=== PATIENT | female | born 1950 | race Caucasian/White ===

== ENCOUNTER 2020-04-07 10:20 | Emergency (ER) | payer MEDICARE, SELFPAY ==
[2020-04-07] VITALS (7 sets, daily range): BP systolic 128–154; BP diastolic 65–85; PULSE 91–106; RESP 18–24; TEMP 37; O2SAT 98–100
--- NOTE | ~2020-04-07 | CT_ITS ---
EXAMINATION: CT brain wo con EXAM DATE: 04/07/2020 11:06 INDICATION: Syncope. Recent surgery on brain tumor. TECHNIQUE: Spiral CT of the head was performed without contrast. Axial, coronal and sagittal images were reviewed. The dose-length product (DLP) for this examination was 605.33 mGy-cm. The exposure w as tailored according to patient size, and iterative reconstruction (ASIR) was used as additional dos e reduction technique. There is no prior study for comparison. FINDINGS: There is no acute intraparenchymal hemorrhage. No evidence of intraparenchymal brain mass lesion. No evidence of acute infarction. Please note that initial head CT has limited sensitivity f or small or acute infarctions. Patient has had left-sided occipital craniotomy. Some underlying enla rged CSF space or arachnoid cyst. There is another port-like metallic device in the calvarium overlyi ng the left parietal region. This is causing some metallic artifact. There is mild periventricular an d subcortical hypodensity, nonspecific but probably related to small vessel ischemic disease. There is mild ventricular prominence out of proportion to sulci which is suspected most likely central atr ophy rather than hydrocephalus. There is intracranial carotid arteriosclerosis. There are no extra -axial collections. There is no mass effect or midline shift. The orbits are unremarkable. Soft ti ssue is unremarkable. Status post left mastoidectomy. Right mastoid air cells, and ethmoid imaged si nuses are well aerated. IMPRESSION: Chronic and surgical changes. Reviewed, dictated and finalized at location B. IAC CATH LAB MANAGER
--- NOTE | ~2020-04-07 | XR_ITS ---
EXAMINATION: XR chest 1V EXAM DATE: 04/07/2020 11:11 INDICATION: Syncope. TECHNIQUE: Portable AP frontal chest x-ray was obtained. There is no prior study for comparison. FINDINGS: The lungs are clear. There are no pleural effusions. The cardiomediastinal silhouette is within normal limits. There is no pneumothorax suspected. Right shoulder rotator cuff repair anchor s. IMPRESSION: No acute cardiopulmonary findings. Reviewed, dictated and finalized at location B. ICIAN/OPHTHALMOLOGIST
--- NOTE | 2020-04-07 10:25 | ECG_ITS ---
Measurements Intervals [place] Rate: 99 P: 76 KS: 151 QRS: -6 QRSD: 74 T: 12 QT: 314 QTc: 404 Interpretive Statements SINUS RHYTHM LOW QRS VOLTAGE IN PRECORDIAL LEADS VOLTAGE CRITERIA FOR LVH INFERIOR INFARCT, AGE INDETERMINATE BASELINE ARTIFACT- V3-V4 ABNORMAL ECG Electronically Signed On 04-07-2020 10:46:44 SHAREPOINT CONSULTANT by Dimas Boykin D.O.
[2020-04-07 10:51] LABS: Basophils Percent Auto 0.3 % (0.2-1.2); Eosinophils Absolute Auto 0.3 K/mm3 (0-0.3); Eosinophils Percent Auto 5.5 % (0-4.4); Hematocrit 37.7 % (37.0-47.0); Hemoglobin 12.3 g/dL (12.0-15.0); Immature Granulocyte Absolute 0.03 K/mm3 (0.00-0.031); Immature Granulocyte Percent A 0.5 % (0-0.5); Immature Platelet Fraction Pct 2.2 % (0.9-11.2); Lymphocytes Absolute Auto 1.14 K/mm3 (0.9-3.2); Lymphocytes Percent Auto 19.5 % (18.3-44.2); Mean Corpuscular HGB Conc 32.6 g/dl (32-36); Mean Corpuscular Hemoglobin 28.1 pg (26-34); Mean Corpuscular Volume 86.3 fl (80-100); Mean Platelet Volume 9.4 fl (7.4-10.4); Monocytes Absolute Auto 0.6 K/mm3 (0.1-0.6); Monocytes Percent Auto 9.7 % (2.6-8.5); Neutrophils Absolute Auto 3.8 K/mm3 (1.3-6.7); Neutrophils Percent Auto 64.5 % (45.5-73.1); Platelet Count Result 129 k/mm3 (150-375); Red Blood Count 4.37 M/mm3 (4.2-5.4); Red Cell Distribution Width 14.4 % (11.5-14.5); White Blood Count 5.9 K/mm3 (4.5-10.0)
[2020-04-07 10:54] LABS: Anion Gap 7 mmol/L (8-16); Blood Urea Nitrogen 14 mg/dL (7-17); Calcium 9.2 mg/dL (8.4-10.2); Carbon Dioxide 26 mmol/L (22-30); Chloride 101 mmol/L (98-107); Estimated CRCL calculation 84 ml/min; Estimated Glomerular Filt Rate > 60; Glucose 189 mg/dL (65-105); Potassium 4.4 mmol/L (3.4-5.0); Sodium 134 mmol/L (137-145)
--- NOTE | 2020-04-07 10:57 | ED.GENADULT ---
HPI - General Adult General Chief complaint: Syncope Stated complaint: syncopal episode, recent brain surgery Time Seen by Provider: 04/07/20 10:25 Source: RN notes reviewed History of Present Illness HPI narrative: Patient presents to emergency department from home for syncopal episode. Patient states she had a syncopal episode last night. States she been laying on her bed and gotten up to go into the living room when she had a syncopal episode. She was caught by her did not fall to the ground. Patient is scheduled for eye surgery tomorrow and I called her eye physician today who would recommend she come to the emergency department for further evaluation. Patient denies any fevers or chills vision changes chest pain shortness of breath abdominal pain nausea vomiting or any other symptoms. 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 a IVC filter placed and is off anticoagulation secondary to the recent craniotomy Related Data Home Medications Medication Instructions Recorded Confirmed omeprazole 20 mg capsule,delayed 20 mg PO DAILY 09/12/19 release Allergies Allergy/AdvReac Type Severity Reaction Status Date / Time latex Allergy Mild RASH AT Verified 01/01/20 11:34 SITE OF TAPE epinephrine Allergy Unknown shakey Verified 01/01/20 11:34 Sulfa (Sulfonamide Allergy Unknown Joint Pain Verified 01/01/20 11:34 Antibiotics) tetracycline Allergy Unknown Joint Pain Verified 01/01/20 11:34 Review of Systems Review of Systems: Narrative: Gen.: Denies fevers or chills Eyes: Denies eye pain or visual change ENT: Denies congestion Respiratory: Denies shortness of breath or cough CV: See HPI GI: Denies abdominal pain nausea, emesis or diarrhea Musculoskeletal: Denies back pain or muscle pain Neuro: Denies numbness, tingling, weakness or focal weakness Skin: Denies rash Except as documented, all other systems reviewed and negative [facility] Past Medical History Medical History (Updated 04/07/20 @ 15:04 by Billy Gore DO) Gastroesophageal reflux Mixed hyperlipidemia Obstructive sleep apnea Rosacea Seasonal allergic rhinitis Surgical History Surgical History Status post excision of acoustic neuroma Family History Family History Other Cerebrovascular accident Family history of lung cancer Social History Social History Smoking status: Heavy tobacco smoker Second hand tobacco smoke exposure: No Alcohol intake: never Gender identity (if verbalized by the patient): Female Exam Narrative: Exam Narrative: APPEARANCE: No acute distress, nontoxic, resting in bed EYES: PERRL HEENT: Normocephalic, atraumatic, OMM RESPIRATORY: No respiratory distress Clear to auscultation bilaterally with no rhonchi wheezing or rales. CARDIOVASCULAR: Regular rate and rhythm without murmurs rubs or gallops. ABDOMINAL: Soft, nontender, nondistended, no rebound or guarding MUSCULOSKELETAl: Moves all extremities. No clubbing, cyanosis or edema. NEURO: Awake and alert. Following commands, speech normal, no focal deficits SKIN:: Warm, dry. No rashes lesions or abrasions PSYCHIATRIC: Normal affect/mood, Course Course Emergency Course: Patient is remained on cardiac monitoring throughout stay in ED. No arrhythmias noted Discussed with patient results of workup and diagnosis. Discussed need for follow-up with primary care, proper use of medication, and reasons to return to the emergency department. Patient understands and agrees to current treatment plan Vital Signs Vital signs: Vital Signs Temperature 98.6 F 04/07/20 10:36 Pulse Rate 106 H 04/07/20 10:36 Respiratory Rate 24 H 04/07/20 10:36 Blood Pressure 154/85 H 04/07/20 10:36 Pulse Oximetry 99 04/07/20
[2020-04-07] MEDS: SODIUM CHLORIDE 0.9% IV 1,000 ML 999 ML IV CONT (11:13)
[2020-04-07 11:21] LABS: INR 0.9
[2020-04-07 11:22] LABS: Partial Thromboplastin Time 23.9 SECONDS (22.3-36.8)
[2020-04-07 11:25] LABS: Troponin I < 0.012 ng/mL (0.000-0.034)
[2020-04-07 14:06] LABS: Troponin I < 0.012 ng/mL (0.000-0.034)
== END 2020-04-07 15:13 | disposition home or self-care (01) ==
PROVIDERS: Emergency Provider Emergency Medicine; PCP Family Medicine
DX: R55 Syncope and collapse (principal); K21.9 Gastro-esophageal reflux disease without esophagitis; E78.2 Mixed hyperlipidemia; G47.33 Obstructive sleep apnea (adult) (pediatric); R94.31 Abnormal electrocardiogram [ECG] [EKG]; Z86.711 Personal history of pulmonary embolism; F17.200 Nicotine dependence, unspecified, uncomplicated; Z87.01 Personal history of pneumonia (recurrent)
CPT/HCPCS: 36415; 70450; 71045; 80048; 84484; 85025; 85055; 85610; 85730; 93005; 96360; 99284; J7030

== ENCOUNTER 2021-05-24 15:19 | Outpatient (CLI) | payer MEDICARE, SELFPAY ==
--- NOTE | ~2021-05-24 | US_ITS ---
EXAMINATION:US venous doppler LE LT INDICATION:Left foot pain TECHNIQUE: Multiple grayscale, color flow and Doppler images of the left lower extremity deep venous systems were obtained and reviewed. COMPARISON:No prior studies for comparison. FINDINGS: The common femoral, superficial femoral and popliteal veins demonstrate normal respiratory variation, augmentation and compressibility. Color flow is also seen within the posterior tibial, pe roneal, greater saphenous and profunda veins. IMPRESSION: 1: No lower extremity deep venous thrombosis. Reviewed, dictated and finalized at location A. IM WITNESS ADMINISTRATOR
== END 2021-05-24 15:20 | disposition home or self-care (01) ==
LOC: ANHIMG 15:29
PROVIDERS: PCP Family Medicine
DX: M79.672 Pain in left foot (principal)
CPT/HCPCS: 93971

== ENCOUNTER → 2021-05-26 15:00 | Outpatient (CLI) | payer MEDICARE, SELFPAY ==
--- NOTE | ~2021-05-26 | MM_ITS ---
EXAMINATION: MM screening [facility] BI w tito HISTORY: Screening mammogram TECHNIQUE: Craniocaudal and mediolateral oblique 3-D tomosynthesis images were obtained and synthetic 2-D images were generated. CAD analysis was submitted and interpreted. COMPARISON: 05/13/2019, 05/24/2017, 09/14/2012 BREAST PARENCHYMAL COMPOSITION: There are scattered areas of fibroglandular density. FINDINGS: There is no evidence of suspicious mass, calcification, or architectural distortion to sugg est malignancy in either breast. There has been no suspicious interval change. IMPRESSION: 1. No mammographic evidence of malignancy. 2. Recommend routine screening mammography in one year. BI-RADS Category 1: Negative Reviewed, dictated and finalized at location A. CTOR OF RESPIRATORY THERAPY
== END ==
PROVIDERS: PCP Family Medicine; Visit Provider Family Medicine
DX: Z12.31 Encounter for screening mammogram for malignant neoplasm of breast (principal)
CPT/HCPCS: 77063; 77067

== ENCOUNTER 2022-07-20 17:00 | Emergency (ER) | payer MEDICARE, SELFPAY ==
--- NOTE | ~2022-07-20 | XR_ITS ---
EXAMINATION: XR chest 2V 07/20/2022 18:10 INDICATION: Shortness of breath with productive cough PROCEDURE: 2 view chest COMPARISON: 04/07/2020 FINDINGS: The lungs are clear. The cardiomediastinal silhouette is within normal limits. There are no pleural effusions. There is no pneumothorax suspected. There is accentuated thoracic kyphosis. IMPRESSION: 1: NO ACUTE CARDIOPULMONARY DISEASE. Reviewed, dictated and finalized at location A. ET MAKER
[2022-07-20 17:30] VITALS: BP 156/89; PULSE 96; RESP 16; TEMP 37.2; O2SAT 99
--- NOTE | 2022-07-20 17:48 | ED.URI ---
HPI - URI/Sore Throat General Chief Complaint: Upper Respiratory Infection Stated Complaint: cold sx Time Seen by Provider: 07/20/22 17:48 Source: patient Mode of arrival: ambulatory Limitations: no limitations History of Present Illness HPI Narrative: 71-year-old female presents with complaint of nasal congestion, sore throat, cough, fatigue for 5-6 days. Reports that she started to feel better and then today cough worse with shortness of breath. Afebrile. Not taking any [id number] medications today to treat her symptoms. Patient had COVID 3 weeks ago. All Systems reviewed and negative except as noted above. Related Data Home Medications Medication Instructions Recorded Confirmed omeprazole 20 mg capsule,delayed 20 mg PO DAILY 09/12/19 07/20/22 release aspirin 325 mg tablet 325 mg PO DAILY 07/20/22 07/20/22 metformin 500 mg tablet,extended 500 mg PO DAILY 07/20/22 07/20/22 release 24 hr Allergies Allergy/AdvReac Type Severity Reaction Status Date / Time latex Allergy Mild RASH AT Verified 07/20/22 17:34 SITE OF TAPE Sulfa (Sulfonamide Allergy Unknown Joint Pain Verified 07/20/22 17:34 Antibiotics) tetracycline Allergy Unknown Joint Pain Verified 07/20/22 17:34 Review of Systems Review of Systems: CONSTITUTIONAL: Denies fever, chills, or sweats. EYES: Denies visual changes, redness, or discharge. ENT: reports rhinorrhea, congestion, sore throat. Denies otalgia. CARDIOVASCULAR: Denies chest pain, palpitations, or edema. RESPIRATORY: reports cough anddyspnea with exertion. GASTROINTESTINAL: Denies abdominal pain, nausea, vomiting, or diarrhea. GENITOURINARY: Denies dysuria or hematuria. SKIN: Denies rash or itching. MUSCULOSKELETAL: Denies back pain, joint pain, or myalgia. NEUROLOGIC: Denies headache, numbness, or weakness. PSYCHIATRIC: Denies anxiety or depression. All other systems reviewed are negative, except as documented in HPI. [facility] Past Medical History Medical History Cadena's palsy Gastroesophageal reflux IVC (inferior vena cava obstruction) Mixed hyperlipidemia Normal colonoscopy (~2019) Obstructive sleep apnea Rosacea Seasonal allergic rhinitis Surgical History Surgical History H/O craniotomy H/O eye surgery Status post excision of acoustic neuroma Family History Family History (Updated 10/26/20 @ 10:12 by Veronica Glover [facility]) Mother Acute leukemia Cerebrovascular accident Hypertension Sibling Lymphoma Father Lung cancer Polio Other Family history of lung cancer Social History Social History (Updated 10/26/20 @ 10:13 by Veronica Glover [facility]) Smoking packs per day: 2 Smoking cigarettes per day: 40.0 Years smoked: 10 Smoking pack-years: 20.00 Tobacco type: cigarettes Second hand tobacco smoke exposure: No Smoking end date: 06/04/81 Alcohol intake: current Alcohol use details: rare Substance use: never Substance use type: does not use Living arrangements: with family Occupation/Education: retired Gender identity (if verbalized by the patient): Female Spiritual care concerns: No Agree to blood products: Yes Comments At time of signature, agree with nursing past medical, surgical, social and family history. There is no relevant family history pertinent to the presenting complaint. Exam Narrative: GENERAL: This is a well-nourished, well-developed patient, in no apparent distress. HEAD: normocephalic, atraumatic. EYES: PERRL. Sclera clear/white. Vision is grossly intact. EARS: External ears normal, auditory canals clear and without drainage, TMs normal without perforation. Hearing grossly intact. NOSE: External nose normal with clear nasal drainage. THROAT: Mucous membranes moist, Mild erythema postnasal drainage. NECK: Neck supple, non-tender without lymphadenopat
== END 2022-07-20 18:33 | disposition home or self-care (01) ==
PROVIDERS: Emergency Provider Nurse Practitioner Family; PCP Family Medicine
DX: J06.9 Acute upper respiratory infection, unspecified (principal); R05.9 Cough, unspecified; Z87.891 Personal history of nicotine dependence; K21.9 Gastro-esophageal reflux disease without esophagitis; E78.2 Mixed hyperlipidemia; Z79.82 Long term (current) use of aspirin
CPT/HCPCS: 71046; 99213; G0463

== ENCOUNTER 2024-01-15 01:32 | Day surgery (SDC) | payer MEDICARE, SELFPAY ==
[2023-12-26 14:44] VITALS: BMI 34.9
[2023-12-26 15:17] VITALS: BMI 34.9
[2023-12-26 15:18] VITALS: BMI 34.9
[2024-01-15 06:45] VITALS: BP 151/70; PULSE 88; RESP 20; TEMP 36.1; O2SAT 100; BMI 33.6
--- NOTE | 2024-01-15 07:11 | WPDANESEPPF ---
Anes - Initial Pre Proc Eval Procedure: Operation Date: 01/15/24 08:00 Proposed Procedures p Esophagogastroduodenoscopy & Colonoscopy - Edwin Keane MD Date/Time: 01/15/24 07:11 Surgeon: Edwin Keane MD Pre Op Diagnosis: Family history colon polyps, GERD without esophagi Patient Data Age: 73 Gender: F Height: 1.73 m Weight: 100.3 kg Last Vital Signs Temp 36.1 C L 01/15/24 06:45 Pulse 88 01/15/24 06:45 Resp 20 01/15/24 06:45 BP 151/70 H 01/15/24 06:45 Pulse Ox 100 01/15/24 06:45 O2 Del Method Room Air 01/15/24 06:45 Allergies Allergy/AdvReac Type Severity Reaction Status Date / Time Sulfa (Sulfonamide Allergy Unknown Joint Pain Verified 01/15/24 06:57 Antibiotics) tetracycline Allergy Unknown Joint Pain Verified 01/15/24 06:57 Home Medications Medication Instructions Recorded Confirmed Type omeprazole 20 mg capsule,delayed 20 mg PO DAILY 09/12/19 01/15/24 History release spironolactone 25 mg tablet See Rx Instructions .Route 09/18/21 01/15/24 Rx .COMPLEX #90 tabs aspirin 325 mg tablet 325 mg PO DAILY 07/20/22 01/15/24 History metformin 500 mg tablet,extended 1,000 mg PO DAILY 07/20/22 01/15/24 History release 24 hr carboxymethylcellulose sodium 0.5 1 drp LEFT EYE QID PRN Dry Eyes 12/26/23 01/15/24 History % eye drops in a dropperette (Refresh Plus) cetirizine 10 mg capsule (Zyrtec) 10 mg PO DAILY 12/26/23 01/15/24 History rosuvastatin 20 mg BYMOUTH DAILY 12/26/23 01/15/24 History Patient hx anesthesia problems: none Family hx anesthesia problems: none Results Review: All pre-operative results and documents have been reviewed as part of the pre-operative evaluation. [facility] Past Medical History Medical History (Updated 01/15/24 @ 07:12 by Maria Victoria Torres, VICENTE) Cadena's palsy Brain tumor Gastroesophageal reflux IVC (inferior vena cava obstruction) Mixed hyperlipidemia Normal colonoscopy (~2018) Obstructive sleep apnea Rosacea Seasonal allergic rhinitis Surgical History Surgical History H/O craniotomy H/O eye surgery Status post excision of acoustic neuroma Family History Family History (Updated 10/26/20 @ 10:12 by Veronica Glover [facility]) Mother Acute leukemia Cerebrovascular accident Hypertension Sibling Lymphoma Father Lung cancer Polio Other Family history of lung cancer Social History Social History (Updated 10/26/20 @ 10:13 by Veronica Glover [facility]) Smoking packs per day: 2 Smoking cigarettes per day: 40.0 Years smoked: 10 Smoking pack-years: 20.00 Tobacco type: cigarettes Second hand tobacco smoke exposure: No Smoking end date: 06/04/81 Alcohol intake: current Alcohol use details: rare Substance use: never Substance use type: does not use Living arrangements: with family Occupation/Education: retired Gender identity (if verbalized by the patient): Female Spiritual care concerns: No Agree to blood products: Yes Anes - Eval Final PreProcedure Day of Procedure 01/15/24 07:11 Results Review: All pre-operative results and documents have been reviewed as part of the pre-operative evaluation. Informed Consent: The patient's anesthetic plan and its attendant risks and benefits were discussed with the patient/family/POA. Questions were solicited and answers provided to the satisfaction of the patient/family/POA.
[2024-01-15] MEDS: LACTATED RINGERS 1,000 ML 150 ML IV CONT (07:15)
[2024-01-15 07:16] LABS: Glucose Point of Care 144 mg/dl (65-105)
--- NOTE | 2024-01-15 07:21 | WPDANESEPPF ---
Anes - Initial Pre Proc Eval Procedure: Operation Date: 01/15/24 08:00 Proposed Procedures p Esophagogastroduodenoscopy & Colonoscopy - Edwin Keane MD Date/Time: 01/15/24 07:21 Surgeon: Edwin Keane MD Pre Op Diagnosis: Family history colon polyps, GERD without esophagi Patient Data Age: 73 Gender: F Height: 1.73 m Weight: 100.3 kg Last Vital Signs Temp 36.1 C L 01/15/24 06:45 Pulse 88 01/15/24 06:45 Resp 20 01/15/24 06:45 BP 151/70 H 01/15/24 06:45 Pulse Ox 100 01/15/24 06:45 O2 Del Method Room Air 01/15/24 06:45 Allergies Allergy/AdvReac Type Severity Reaction Status Date / Time Sulfa (Sulfonamide Allergy Unknown Joint Pain Verified 01/15/24 06:57 Antibiotics) tetracycline Allergy Unknown Joint Pain Verified 01/15/24 06:57 Home Medications Medication Instructions Recorded Confirmed Type omeprazole 20 mg capsule,delayed 20 mg PO DAILY 09/12/19 01/15/24 History release spironolactone 25 mg tablet See Rx Instructions .Route 09/18/21 01/15/24 Rx .COMPLEX #90 tabs aspirin 325 mg tablet 325 mg PO DAILY 07/20/22 01/15/24 History metformin 500 mg tablet,extended 1,000 mg PO DAILY 07/20/22 01/15/24 History release 24 hr carboxymethylcellulose sodium 0.5 1 drp LEFT EYE QID PRN Dry Eyes 12/26/23 01/15/24 History % eye drops in a dropperette (Refresh Plus) cetirizine 10 mg capsule (Zyrtec) 10 mg PO DAILY 12/26/23 01/15/24 History rosuvastatin 20 mg BYMOUTH DAILY 12/26/23 01/15/24 History Laboratory Tests 01/15/24 07:13 POC Capillary Glucose 144 H mg/dl (65-105) Patient hx anesthesia problems: none Family hx anesthesia problems: none Results Review: All pre-operative results and documents have been reviewed as part of the pre-operative evaluation. [facility] Past Medical History Medical History (Updated 01/15/24 @ 07:12 by Maria Victoria Torres CRNA) Cadena's palsy Brain tumor Gastroesophageal reflux IVC (inferior vena cava obstruction) Mixed hyperlipidemia Normal colonoscopy (~2019) Obstructive sleep apnea Rosacea Seasonal allergic rhinitis Surgical History Surgical History H/O craniotomy H/O eye surgery Status post excision of acoustic neuroma Family History Family History (Updated 10/26/20 @ 10:12 by Veronica Glover [facility]) Mother Acute leukemia Cerebrovascular accident Hypertension Sibling Lymphoma Father Lung cancer Polio Other Family history of lung cancer Social History Social History (Updated 10/26/20 @ 10:13 by Veronica lGover [facility]) Smoking packs per day: 2 Smoking cigarettes per day: 40.0 Years smoked: 10 Smoking pack-years: 20.00 Tobacco type: cigarettes Second hand tobacco smoke exposure: No Smoking end date: 06/04/81 Alcohol intake: current Alcohol use details: rare Substance use: never Substance use type: does not use Living arrangements: with family Occupation/Education: retired Gender identity (if verbalized by the patient): Female Spiritual care concerns: No Agree to blood products: Yes Anes - Eval Final PreProcedure Day of Procedure 01/15/24 07:21 Patient weight: normal Heart: regular rate and rhythm Lungs: clear to auscultation Airway: Mallampati scale class III Neurological: alert and oriented Last oral intake: >/= 8 hours ASA classification: III Emergent: no Anesthetic plan: proceed Anesthesia type and monitoring: general and standard monitoring Results Review: All pre-operative results and documents have been reviewed as part of the pre-operative evaluation. Informed Consent: The patient's anesthetic plan and its attendant risks and benefits were discussed with the patient/family/POA. Questions were solicited and answers provided to the satisfaction of the patient/family/POA.
--- NOTE | 2024-01-15 08:06 | PM.HPGS ---
History of Present Illness History of Present Illness Consent: Risks, benefits, and alternatives have been discussed and questions answered. Patient agrees to proceed with procedure. Chief complaint: Family history colon polyps, GERD without esophagi Narrative: Svetlana Sun is a 73 year old female with colon polyp, last colonoscopy 5 years ago, also intermittent cough since she had craniotomy, using prilosec Review of Systems Review of Systems: All systems reviewed & are unremarkable except as noted in HPI and below PMFSH Past Medical History Medical History (Updated 01/15/24 @ 08:07 by Edwin Keane MD) Cadena's palsy Brain tumor Colon polyp Gastroesophageal reflux IVC (inferior vena cava obstruction) Mixed hyperlipidemia Normal colonoscopy (~2019) Obstructive sleep apnea Rosacea Seasonal allergic rhinitis Surgical History Surgical History H/O craniotomy H/O eye surgery Status post excision of acoustic neuroma Family History Family History (Updated 10/26/20 @ 10:12 by Veronica Glover CMA) Mother Acute leukemia Cerebrovascular accident Hypertension Sibling Lymphoma Father Lung cancer Polio Other Family history of lung cancer Social History Social History (Updated 10/26/20 @ 10:13 by Veronica Glover CMA) Smoking packs per day: 2 Smoking cigarettes per day: 40.0 Years smoked: 10 Smoking pack-years: 20.00 Tobacco type: cigarettes Second hand tobacco smoke exposure: No Smoking end date: 06/04/81 Alcohol intake: current Alcohol use details: rare Substance use: never Substance use type: does not use Living arrangements: with family Occupation/Education: retired Gender identity (if verbalized by the patient): Female Spiritual care concerns: No Agree to blood products: Yes Meds Home Medications and Allergies Home Medications Medication Instructions Recorded Confirmed Type omeprazole 20 mg capsule,delayed 20 mg PO DAILY 09/12/19 01/15/24 History release spironolactone 25 mg tablet See Rx Instructions .Route 09/18/21 01/15/24 Rx .COMPLEX #90 tabs aspirin 325 mg tablet 325 mg PO DAILY 07/20/22 01/15/24 History metformin 500 mg tablet,extended 1,000 mg PO DAILY 07/20/22 01/15/24 History release 24 hr carboxymethylcellulose sodium 0.5 1 drp LEFT EYE QID PRN Dry Eyes 12/26/23 01/15/24 History % eye drops in a dropperette (Refresh Plus) cetirizine 10 mg capsule (Zyrtec) 10 mg PO DAILY 12/26/23 01/15/24 History rosuvastatin 20 mg BYMOUTH DAILY 12/26/23 01/15/24 History Allergies Allergy/AdvReac Type Severity Reaction Status Date / Time Sulfa (Sulfonamide Allergy Unknown Joint Pain Verified 01/15/24 06:57 Antibiotics) tetracycline Allergy Unknown Joint Pain Verified 01/15/24 06:57 Vital Signs Vital Signs - 24 hr 01/15/24 06:45 Temperature 97.0 F L Pulse Rate 88 Respiratory Rate 20 Blood Pressure 151/70 H Pulse Oximetry 100 Oxygen Delivery Room Air Exam Const: General: comfortable and no acute distress HENMT: Face/Nose/Sinus: Normal nares present Eyes: General: appearance normal, both eyes and all related structures Neck: Neck: no JVD Resp: Auscultation: clear to auscultation bilaterally Cardio: Rate: regular rate Rhythm: regular rhythm GI: Inspection: non-distended GI Palp: Yes Soft to palpation Skin: General skin exam: normal color Neuro: General: gait normal Speech: normal speech Extrem: General: normal to inspection Psych: Mental Status: mental status grossly normal Assessment and Plan Assessment and plan (1) Cough: Code(s): R05.9 - Cough, unspecified Status: Inactive Assessment and Plan: egd (2) Colon polyp: Code(s): K63.5 - Polyp of colon Status: Acute Assessment and Plan: colonoscopy
--- NOTE | 2024-01-15 08:21 | SUR.OPER ---
EGD start 815, EGD end 817. Colonoscopy start 822.
[2024-01-15 08:36] VITALS: BP 140/75; PULSE 70; RESP 18; O2SAT 97
[2024-01-15 08:46] VITALS: BP 135/72; PULSE 77; RESP 19; O2SAT 100
[2024-01-15 08:56] VITALS: BP 148/75; PULSE 70; RESP 19; O2SAT 100
== END 2024-01-15 09:14 | disposition home or self-care (01) ==
PROVIDERS: PCP Family Medicine Sports Medicine; Visit Provider Internal Medicine Gastroenterology
PROC: 0DJ08ZZ Inspection of Upper Intestinal Tract, Via Natural or Artificial Opening Endoscopic (ICD-10-PCS; CPT 43235; principal; 2024-01-15 08:00)
DX: Z12.11 Encounter for screening for malignant neoplasm of colon (principal); K57.30 Diverticulosis of large intestine without perforation or abscess without bleeding; K64.8 Other hemorrhoids; Z86.010 Personal history of colon polyps; K29.70 Gastritis, unspecified, without bleeding; K21.9 Gastro-esophageal reflux disease without esophagitis; E78.2 Mixed hyperlipidemia; G47.33 Obstructive sleep apnea (adult) (pediatric); Z87.891 Personal history of nicotine dependence; Z79.82 Long term (current) use of aspirin; Z79.84 Long term (current) use of oral hypoglycemic drugs
CPT/HCPCS: 43239; G0105; 82948; 88305; J2704; J7120

== ENCOUNTER 2024-03-11 12:44 | Outpatient (CLI) | payer MEDICARE, SELFPAY ==
--- NOTE | ~2024-03-11 | MM_ITS ---
EXAMINATION: MM screening [facility] BI w tito HISTORY: Screening TECHNIQUE: Craniocaudal and mediolateral oblique 3-D tomosynthesis images were obtained and synthetic 2-D images were generated. CAD analysis was submitted and interpreted. COMPARISON: Comparison to multiple prior studies sequentially, with oldest reviewed study dated 05/05. BREAST PARENCHYMAL COMPOSITION: Dense: The breasts are heterogeneously dense, which may obscure small masses FINDINGS: There is a partially obscured mass in the upper outer quadrant of the right breast, posteri or third. The left breast is stable without evidence for malignancy. IMPRESSION: 1. Partially obscured right breast mass. 2. Additional mammographic views and possible breast ultrasound are recommended. BI-RADS Category 0: Incomplete: Needs additional imaging evaluation. Reviewed, dictated and finalized at location B. IMPRESSION: 1. Partially obscured right breast mass. 2. Additional mammographic views and possible breast ultrasound are recommended . BI-RADS Category 0: Incomplete: Needs additional imaging evaluation.
== END 2024-03-11 12:45 | disposition home or self-care (01) ==
LOC: MICIMG 12:45
PROVIDERS: PCP Family Medicine Sports Medicine; Visit Provider Family Medicine Sports Medicine
DX: N63.11 Unspecified lump in the right breast, upper outer quadrant (principal); Z12.31 Encounter for screening mammogram for malignant neoplasm of breast
CPT/HCPCS: 77063; 77067

== ENCOUNTER 2024-04-01 09:12 | Outpatient (CLI) | payer MEDICARE, SELFPAY ==
--- NOTE | ~2024-04-01 | MMUS_ITS ---
EXAMINATION: MM diagnostic flory RT w tito, US breast RT limited HISTORY: Right breast asymmetry TECHNIQUE: Additional 3-D tomosynthesis images of the right breast were performed and synthetic 2-D i mages were generated. CAD analysis was submitted and interpreted. High resolution limited right breas t ultrasound was performed. COMPARISON: 03/11/2024, 05/26/2021 BREAST PARENCHYMAL COMPOSITION:Dense: The breasts are heterogeneously dense, which may obscure small masses. FINDINGS: MAMMOGRAPHIC FINDINGS: Spot compression views demonstrate possible persistent mass at the upper, outer right breast posterio rly. ULTRASOUND: Ultrasound demonstrates a 4 mm hypoechoic round circumscribed mass at the 11:00 position right breast , 9 cm from the nipple. IMPRESSION: 4 mm probable benign mass in the upper, outer right breast, as detailed above. Six-month follow-up r ight mammogram and ultrasound recommended to assure stability. BI-RADS category 3, probably benign findings. Reviewed, dictated and finalized at location M. IMPRESSION: 4 mm probable benign mass in the upper, outer right breast, as detailed above. Six-month follow-up right mammogram and ultrasound recommended to assure stabi lity. BI-RADS category 3, probably benign findings.
== END 2024-04-01 09:13 | disposition home or self-care (01) ==
LOC: MICIMG 09:13
PROVIDERS: PCP Family Medicine; Visit Provider Nurse Practitioner Family
DX: R92.8 Other abnormal and inconclusive findings on diagnostic imaging of breast (principal)
CPT/HCPCS: 76642; 77061; 77065; G0279